=== PATIENT | male | born 1960 | race Caucasian/White ===

== ENCOUNTER 2017-01-12 12:11 | Emergency (ER) | payer BC ==
[2017-01-12 12:17] VITALS: TEMP 98.1; BMI 30.7
--- NOTE | 2017-01-12 12:44 | PDOC ---
History of Present Illness - General Chief Complaint: Injury Stated Complaint: FALL/ RT SIDE PAIN Time Seen by Provider: 01/12/17 12:26 History Source: Patient Exam Limitations: No Limitations - History of Present Illness Initial Comments: CHIEF COMPLAINT: 56 y/o afebrile female with PMH HTN, HLD, HISTORY OF PRESENT ILLNESS: Vital signs on arrival are within normal limits. REVIEW OF SYSTEMS: GENERAL/CONSTITUTIONAL: Subjective fever/chills. No weakness. No weight change. HEAD, EYES, EARS, NOSE AND THROAT: No change in vision. No ear pain or discharge. No sore throat. CARDIOVASCULAR: No chest pain or shortness of breath. RESPIRATORY: No cough, wheezing, or hemoptysis. GASTROINTESTINAL: See history of present illness. GENITOURINARY: No dysuria, frequency, or change in urination. MUSCULOSKELETAL: No joint or muscle swelling or pain. No neck or back pain. SKIN: No rash or easy bruising. NEUROLOGIC: No headache, vertigo, loss of consciousness, or loss of sensation. PHYSICAL EXAM: GENERAL: The patient is awake, alert, and fully oriented, in no acute distress. HEAD: Normal with no signs of trauma. ENT: Pupils equal, round and reactive to light, extraocular movements intact, sclera anicteric, conjunctiva clear. Neck supple. LUNGS: Clear to auscultation bilaterally. Normal excursion. No respiratory distress or use of accessory muscles. CV: RRR, S1/S2, no MRG. Cap refill < 2 sec. ABDOMEN: Soft, non-distended, non-tender even to deep palpation, no hepatomegaly or splenomegaly, no masses. EXTREMITIES: Normal range of motion, no edema. NEUROLOGICAL: Normal speech, normal gait. CN II-XII grossly intact. PSYCH: Normal mood, normal affect. SKIN: Warm, dry, normal turgor, no rashes or lesions noted. Past History - Past Medical History Allergies/Adverse Reactions: Allergies Allergy/AdvReac Type Severity Reaction Status Date / Time ciprofloxacin [From Cipro] Allergy Rash Verified 01/12/17 12:14 ciprofloxacin HCl Allergy Rash Verified 01/12/17 12:14 [From Cipro] codeine [Codeine] Allergy Rash Verified 01/12/17 12:14 Home Medications: Ambulatory Orders Metoprolol Tartrate [Lopressor -] 100 mg PO DAILY 08/05/12 Nifedipine ER [Procardia XL -] 90 mg PO DAILY 12/31/11 Naproxen [Naprosyn -] 500 mg PO BID PRN #14 tablet 10/16/14 Acetaminophen [Tylenol -] 1,000 mg PO Q6H PRN 11/03/14 Ranitidine HCl [Zantac] 150 mg PO PRN PRN 11/03/14 Tramadol HCl/Acetaminophen [Ultracet Tablet] 1 - 2 tab PO TID PRN #60 tablet 03/11 Aspirin [ASA -] 81 mg PO DAILY 12/09/15 Rosuvastatin Calcium [Crestor] 10 mg PO DAILY 12/09/15 Anemia: No GI Disorders: Yes (diverticiulitis) Disorders: Yes (KIDNEY STONES) HTN: Yes Hypercholesterolemia: Yes - Surgical History GI Surgery: No Orthopedic Surgery: Yes (ARTHROSCOPY RIGHT KNEE) - Immunization History Immunization Up to Date: Yes - Psycho/Social/Smoking Cessation Hx Anxiety: No Suicidal Ideation: No Smoking Status: No Smoking History: Never smoked Have you smoked in the past 12 months: No Number of Cigarettes Smoked Daily: 0 Hx Alcohol Use: No Drug/Substance Use Hx: No Substance Use Type: Alcohol *Physical Exam - Vital Signs Last Vital Signs Temp Pulse Resp BP Pulse Ox 98.1 F 60 18 127/90 99 01/12/17 12:14 01/12/17 12:14 01/12/17 12:14 01/12/17 12:14 01/12/17 12:14 Medical Decision Making - Medical Decision Making A/P:
[2017-01-12] MEDS ORDERED: ACETAMINOPHEN INJECTION 100 ML IVPB ONE (14:06)
[2017-01-12 14:08] LABS: BASOPHIL 0.8 % (0-2.0); EOSINOPHIL 1.4 % (0-4.5); MCH 29.6 pg (25.7-33.7); MCHC 33.4 g/dl (32.0-35.9); MEAN CELL VOLUME 88.5 fl (80-96); MEAN PLT VOLUME 8.6 fl (7.5-11.1); NEUTROPHILS 74.1 % (42.8-82.8); PLATELET COUNT 183 K/MM3 (134-434); RDW 12.9 % (11.9-15.9); WHITE BLOOD COUNT 11.1 K/mm3 (4.0-10.0)
[2017-01-12 14:27] VITALS: BP 124/83; PULSE 62
[2017-01-12 14:34] LABS: ALBUMIN 4.1 g/dl (3.4-5.0); ANION GAP 7 (8-16); CALCIUM 9.5 mg/dL (8.5-10.1); CO2 30 mmol/L (21-32); GLUCOSE,RANDOM 85 mg/dL (74-106)
[2017-01-12 14:37] LABS: ALK PHOS 85 U/L (45-117); CREATININE 0.8 mg/dL (0.7-1.3); SGPT/ALT 47 U/L (12-78); TOT PROT 8.1 g/dl (6.4-8.2)
[2017-01-12 14:39] LABS: SGOT/AST 36 U/L (15-37)
[2017-01-12 14:48] LABS: INR 1.1 (0.82-1.09); PROTHROMBIN TIME (PATIENT) 12.1 SEC (9.98-11.88)
--- NOTE | 2017-01-12 14:58 | PDOC ---
History of Present Illness - General Chief Complaint: Injury Stated Complaint: FALL/ RT SIDE PAIN Time Seen by Provider: 01/12/17 12:26 History Source: Patient Exam Limitations: No Limitations - History of Present Illness Initial Comments: 01/12/17 14:53 This is a 56yo man with PMH HTN who presents with LUQ and left flank pain s/p fall from a height of 6ft. He was standing on top of a ladder when he lost his balance and struck his left side on a picket fence. He reports pain to his LUQ, left flank and right popliteal fossa. He has ecchymoses to his left flank, right popliteal fossa and left upper quadrant. He denies chest pain, SOB, hematuria, dysuria, urinary frequency, nausea or vomiting. He denies striking his head or LOC. Occurred: reports: just prior to arrival Severity: reports: moderate Pain Location: reports: abdomen, chest Method of Injury: Yes: fall Modifying Factors: improves with: None Loss of Consciousness: no loss of consciousness Associated Symptoms (Fall): denies symptoms Past History - Travel Traveled outside of the country in the last 30 days: No Close contact w/someone who was outside of country & ill: No - Past Medical History Allergies/Adverse Reactions: Allergies Allergy/AdvReac Type Severity Reaction Status Date / Time ciprofloxacin [From Cipro] Allergy Rash Verified 01/12/17 12:14 ciprofloxacin HCl Allergy Rash Verified 01/12/17 12:14 [From Cipro] codeine [Codeine] Allergy Rash Verified 01/12/17 12:14 Home Medications: Ambulatory Orders Metoprolol Tartrate [Lopressor -] 100 mg PO DAILY 12/31/11 Nifedipine ER [Procardia XL -] 90 mg PO DAILY 12/31/11 Acetaminophen [Tylenol -] 1,000 mg PO Q6H PRN 11/03/14 Ranitidine HCl [Zantac] 150 mg PO PRN PRN 11/03/14 Aspirin [ASA -] 81 mg PO DAILY 12/09/15 Rosuvastatin Calcium [Crestor] 10 mg PO DAILY 12/09/15 Anemia: No GI Disorders: Yes (diverticiulitis) Disorders: Yes (KIDNEY STONES) HTN: Yes Hypercholesterolemia: Yes - Surgical History GI Surgery: No Orthopedic Surgery: Yes (ARTHROSCOPY RIGHT KNEE) - Immunization History Immunization Up to Date: Yes - Psycho/Social/Smoking Cessation Hx Anxiety: No Suicidal Ideation: No Smoking Status: No Smoking History: Never smoked Have you smoked in the past 12 months: No Number of Cigarettes Smoked Daily: 0 Hx Alcohol Use: No Drug/Substance Use Hx: No Substance Use Type: Alcohol Review of Systems - Review of Systems Able to Perform ROS?: Yes Is the patient limited Danish proficient: No Constitutional: No: Symptoms Reported HEENTM: No: Symptoms Reported Respiratory: No: Symptoms reported Cardiac (ROS): No: Symptoms Reported ABD/GI: Yes: See HPI : Yes: See HPI Musculoskeletal: Yes: See HPI Integumentary: Yes: See HPI Neurological: No: Symptoms reported *Physical Exam - Vital Signs Last Vital Signs Temp Pulse Resp BP Pulse Ox 98.1 F 62 20 124/83 100 01/12/17 12:14 01/12/17 14:26 01/12/17 14:26 01/12/17 14:26 01/12/17 14:26 ED Treatment Course - LABORATORY CBC & Chemistry Diagram: 01/12/17 13:50 01/12/17 13:50 - ADDITIONAL ORDERS Additional order review: Laboratory Results 01/12/17 13:50 Sodium 140 Potassium 3.6 Chloride 103 Carbon Dioxide 30 Anion Gap 7 L BUN 23 H Creatinine 0.8 Creat Clearance w eGFR > 60 Random Glucose 85 Calcium 9.5 Total Bilirubin 1.0 D AST 36 D ALT 47 D Alkaline Phosphatase 85 Total Protein 8.1 D Albumin 4.1 D 01/12/17 13:50 RBC 4.68 MCV 88.5 MCHC 33.4 RDW 12.9 MPV 8.6 Neutrophils % 74.1 Lymphocytes % 14.7 D Monocytes % 9.0 Eosinophils % 1.4 Basophils % 0.8 - RADIOLOGY Radiology Studies Ordered: Category Date Time Status ABDOMEN & PELVIS CT WITH CONTR [CT] Stat CT Scan 01/12/17 13:[address] WITH CONTRAST [CT] Stat CT Scan 01/12/17 13:57 Ordered Medical Decision Making - Medical Decision Making 01/12/17 14:58 A/P: This is a 56yo man with PMH HTN who presents with LUQ and left flank pain s/p fall from a height of 6ft. He was standing on top of a ladder when he lost his balance and struck his left side on a picket fence. He reports pain to his LUQ, left flank and right popliteal fossa. He has ecchymoses to his left flank, right popliteal fossa and left upper quadrant. He denies chest pain, SOB, hematuria, dysuria, urinary frequency, nausea or vomiting. He denies striking his head or LOC. DDx: splenic injury, RP bleed, soft tissue injury - CT of chest, abdomen, pelvis - CBC, CMP, Coags, T&S - IV Tylenol - Td 01/12/17 16:52 CT chest abd/pelvis without acute pathology. - Xray Right knee. - Toradol 30mg IVP 01/12/17 18:32 pt is ambulatory and feels better. Xrays (-) for acute pathology. I will discharge. I discussed the physical exam findings, ancillary test results and final diagnoses with the patient. I answered all of the patient's questions. The patient was satisfied with the care received and felt comfortable with the discharge plan and treatment plan. The patient will call his doctor within 96 hours to arrange follow-up and will return to the Emergency Department with any new, persistent or worsening symptoms. *DC/Admit/Observation/Transfer Diagnosis at time of Disposition: Contusion Qualifiers: Encounter type: initial encounter Contusion area: abdominal wall Qualified Code (s): S30.1XXA - Contusion of abdominal wall, initial encounter Right knee pain Qualifiers: Chronicity: acute Qualified Code(s): M25.561 - Pain in right knee - Discharge Dispostion Disposition: HOME Condition at time of disposition: Stable Admit: No - Referrals Referrals: Murray Tripathi [Primary Care Provider] - - Patient Instructions Printed Discharge Instructions: DI for Knee Pain, DI for Contusion Additional Instructions: Take ibuprofen as needed for pain as directed by welder tool and die's instructions. Call your doctor for follow up if symptoms have not improved in the next 4 days. You have a cyst in your kidney which should be evaluated to exclude cancer or any other conditions. Return to ER for worsening pain, inability to walk, blood in your urine or any other concerns.
[2017-01-12] MEDS ORDERED: KETOROLAC TROMETHAMINE 30 MG/1 ML VIAL IVPUSH ONE (16:49)
[2017-01-12] MEDS ORDERED: KETOROLAC TROMETHAMINE 30 MG/1 ML VIAL ONE (16:50)
[2017-01-12 17:01] LABS: URINE APPEARANCE CLEAR; URINE BILIRUBIN NEGATIVE (NEGATIVE); URINE BLOOD NEGATIVE (NEGATIVE); URINE COLOR LTYELLOW; URINE GLUCOSE (UA) NEGATIVE (NEGATIVE); URINE KETONE NEGATIVE (NEGATIVE); URINE LEUK ESTERASE NEGATIVE (NEGATIVE); URINE NITRITE NEGATIVE (NEGATIVE); URINE PROTEIN NEGATIVE (NEGATIVE); URINE UROBILINOGEN NEGATIVE mg/dL (0.2-1.0)
--- NOTE | 2017-01-12 19:36 | PDOC ---
*Physical Exam - Vital Signs Last Vital Signs Temp Pulse Resp BP Pulse Ox 98.1 F 62 20 124/83 100 01/12/17 12:14 01/12/17 14:26 01/12/17 14:26 01/12/17 14:26 01/12/17 14:26 ED Treatment Course - LABORATORY CBC & Chemistry Diagram: 01/12/17 13:50 01/12/17 13:50 - ADDITIONAL ORDERS Additional order review: Laboratory Results 01/12/17 01/12/17 01/12/17 16:45 13:50 13:50 INR 1.10 Sodium 140 Potassium 3.6 Chloride 103 Carbon Dioxide 30 Anion Gap 7 L BUN 23 H Creatinine 0.8 Creat Clearance w eGFR > 60 Random Glucose 85 Calcium 9.5 Total Bilirubin 1.0 D AST 36 D ALT 47 D Alkaline Phosphatase 85 Total Protein 8.1 D Albumin 4.1 D Urine Color Ltyellow Urine Appearance Clear Urine pH 6.0 Urine Protein Negative Urine Glucose (UA) Negative Urine Ketones Negative Urine Blood Negative Urine Nitrite Negative Urine Bilirubin Negative Urine Urobilinogen Negative Ur Leukocyte Esterase Negative 01/12/17 13:50 RBC 4.68 MCV 88.5 MCHC 33.4 RDW 12.9 MPV 8.6 Neutrophils % 74.1 Lymphocytes % 14.7 D Monocytes % 9.0 Eosinophils % 1.4 Basophils % 0.8 - Medications Given in the ED: ED Medications Discontinued Medications Generic Name Dose Route Start Last Admin Trade Name Freq PRN Reason Stop Dose Admin Ketorolac Tromethamine 30 mg 01/12/17 16:49 01/12/17 16:55 Toradol Injection - IVPUSH 01/12/17 16:50 30 mg ONCE ONE Administration Medical Decision Making - Medical Decision Making 01/12/17 16:33 I agree with CATRACHO Feliz's history, assessment, and plan. In summary, 56yo man with hx HTN who presents with LUQ and left flank pain after a fall from a height of 6ft on a ladder. No head strike. Exam with ecchymoses to his left flank, right popliteal fossa and left upper quadrant. CT chest abdomen and pelvis with IV contrast for trauma protocol is negative for acute pathology. FAST exam was negative. Pt feels better and is ambulating in the ED with no complaints, AOx3, will be DC home *DC/Admit/Observation/Transfer Diagnosis at time of Disposition: Contusion Qualifiers: Encounter type: initial encounter Contusion area: abdominal wall Qualified Code (s): S30.1XXA - Contusion of abdominal wall, initial encounter Right knee pain Qualifiers: Chronicity: acute Qualified Code(s): M25.561 - Pain in right knee - Referrals Referrals: Murray Tripathi [Primary Care Provider] - - Patient Instructions Printed Discharge Instructions: DI for Contusion, DI for Knee Pain Additional Instructions: Take ibuprofen as needed for pain as directed by digital advertising specialist's instructions. Call your doctor for follow up if symptoms have not improved in the next 4 days. You have a cyst in your kidney which should be evaluated to exclude cancer or any other conditions. Return to ER for worsening pain, inability to walk, blood in your urine or any other concerns. Print Language: VIETNAMESE - Post Discharge Activity
--- NOTE | 2017-01-13 18:41 | EKG ---
Test Reason : Blood Pressure : / mmHG Vent. Rate : 056 BPM Atrial Rate : 056 BPM P-R Int : 190 ms QRS Dur : 130 ms QT Int : 468 ms P-R-T Axes : 040 007 019 degrees QTc Int : 451 ms SINUS BRADYCARDIA RIGHT BUNDLE BRANCH BLOCK ABNORMAL ECG WHEN COMPARED WITH ECG OF 31-DEC-2011 17:49, RIGHT BUNDLE BRANCH BLOCK IS NOW PRESENT Confirmed by KATIE TIWARI MD ([id number]) on 01/13/2017 6:40:44 PM Referred By: Confirmed By:KATIE TIWARI MD
== END 2017-01-12 18:47 | disposition home or self-care (01) ==
LOC: JER 12:11 → JERFT 12:11 → JER 18:47
PROC: 3E0333Z Introduction of Anti-inflammatory into Peripheral Vein, Percutaneous Approach (ICD-10-PCS; principal; 2017-01-12)
DX: S30.1XXA Contusion of abdominal wall, initial encounter (principal); M25.561 Pain in right knee; W11.XXXA Fall on and from ladder, initial encounter; Y93.9 Activity, unspecified; Y92.9 Unspecified place or not applicable; I10 Essential (primary) hypertension; Z88.1 Allergy status to other antibiotic agents; Z88.6 Allergy status to analgesic agent; Z79.82 Long term (current) use of aspirin; N28.1 Cyst of kidney, acquired
CPT/HCPCS: 36415; 71260-TC; 73560-TC-RT; 74177-TC; 80053; 81003; 85025; 85610; 93005; 93010; 99283-25

== ENCOUNTER 2018-11-13 06:05 | Day surgery (SDC) | payer BC ==
[2018-11-12 11:42] VITALS: BMI 29.2
[2018-11-13] MEDS ORDERED: MIDAZOLAM HCL 2 MG/2 ML SINGLE DOSE VIAL ONE (07:21)
[2018-11-13] MEDS ORDERED: PROPOFOL 20 ML ONE ×2 (07:22→08:16)
[2018-11-13] MEDS ORDERED: LIDOCAINE HCL/PF 2% SDV 5ML VIAL ONE (07:23)
[2018-11-13] MEDS ORDERED: SUCCINYLCHOLINE CHLORIDE 200 MG/10 ML SYRINGE ONE (07:23)
[2018-11-13] MEDS ORDERED: KETOROLAC TROMETHAMINE 30 MG/1 ML VIAL ONE (07:24)
[2018-11-13] MEDS ORDERED: DEXAMETHASONE SOD PHOSPHATE 4 MG/1 ML VIAL ONE (07:24)
[2018-11-13] MEDS ORDERED: BUPIVACAINE HCL/PF 0.5% (5MG/ML) 10 ML VIAL ONE (07:39)
[2018-11-13] MEDS ORDERED: oxyCODONE HCL 5 MG TABLET PO PRN ×2 (07:55)
[2018-11-13] MEDS ORDERED: ONDANSETRON 4 MG/2 ML VIAL IVPUSH PRN (07:55)
[2018-11-13] MEDS ORDERED: LACTATED RINGERS SOLUTION 1,000 ML IV SCH (08:00)
--- NOTE | 2018-11-13 08:16 | HP ---
Satellite [facility] - Chief Complaint Chief Complaint: right knee pain History of Present Illness: right knee pain History Source: Patient Limitations to Obtaining History: No Limitations - Past Medical History Allergies/Adverse Reactions: Allergies Allergy/AdvReac Type Severity Reaction Status Date / Time ciprofloxacin [From Cipro] Allergy Rash Verified 01/12/17 12:14 ciprofloxacin HCl Allergy Rash Verified 01/12/17 12:14 [From Cipro] codeine [Codeine] Allergy Rash Verified 01/12/17 12:14 - Current Medications Current Medications: Home Medications Medication Instructions Recorded Metoprolol Tartrate [Lopressor -] 100 mg PO DAILY 12/31/11 Nifedipine ER [Procardia XL -] 90 mg PO DAILY 12/31/11 Acetaminophen [Tylenol -] 1,000 mg PO Q6H PRN 11/03/14 Ranitidine HCl [Zantac] 150 mg PO PRN PRN 11/03/14 Aspirin [ASA -] 81 mg PO DAILY 12/09/15 Rosuvastatin Calcium [Crestor] 10 mg PO DAILY 12/09/15 Hydrochlorothiazide 25 mg PO DAILY 11/12/18 Satellite Physical Exam - Physical Examination Vital Signs: Vital Signs Period Temp Pulse Resp BP Sys/Lange Pulse Ox Last 24 Hr 97.7 F-97.7 F 61-61 20-20 115-115/78-78 97 General Appearance: Well Nourished ENT: Clear Lung: Clear to auscultation Heart: Regular rate & rhythm Breasts: Soft Abdomen: Soft Extremities: No edema Satellite Impression/Plan - Impression/Plan Impression: right knee pain, medial meniscus tear, OA Operative Procedure: right knee arthroscopy Date to be Performed: 11/13/18
[2018-11-13] MEDS ORDERED: ceFAZolin SODIUM 1 GM VIAL IVPB ONE (08:18)
[2018-11-13] MEDS ORDERED: BUPIVACAINE HCL/PF (5 MG/ML) 30 ML VIAL IJ ONE (08:45)
--- NOTE | 2018-11-13 08:57 | OP ---
Operative Note - Note: Operative Date: 11/13/18 Pre-Operative Diagnosis: right knee pain, MM tear, OA Operation: right knee arthroscopy, partial medial meniscectomy, debridement chondroplasty Post-Operative Diagnosis: Same as Pre-op Surgeon: Devin Barrios Anesthesiologist/LIVESTOCK LABORER: Willam Acharya Anesthesia: General, Local Specimens Removed: shavings Estimated Blood Loss (mls): 0 Drains, Volume Out (mls): 0 Blood Volume Replaced (mls): 0 Fluid Volume Replaced (mls): 500 Operative Report Dictated: Yes
[2018-11-13 10:45] VITALS: TEMP 97.4
[2018-11-13 11:57] VITALS: BP 112/80; PULSE 70
--- NOTE | 2018-11-13 12:23 | OP ---
DATE OF OPERATION: 11/13/2018 PREOPERATIVE DIAGNOSES: Right knee pain, medial meniscus tear and osteoarthritis. POSTOPERATIVE DIAGNOSES: Right knee pain, medial meniscus tear and osteoarthritis. PROCEDURE: Right knee arthroscopy, partial medial meniscectomy and debridement chondroplasty. SURGEON: Devin So MD GIS ADMINISTRATOR: None. ANESTHESIOLOGIST: ANESTHESIA: LMA anesthesia with local injection, 20 mL, 0.5% Marcaine. DRAINS: None. COMPLICATIONS: None. SPECIMEN: Arthroscopic shavings. BLOOD LOSS: None. BLOOD GIVEN: None. FLUID REPLACEMENT: 500 mL. This patient is a 58-year-old male with a preoperative diagnosis of right knee pain, a medial meniscus tear and osteoarthritis. After understanding the potential risks, complications, alternatives, benefits of surgery versus nonsurgical treatment the patient elected to undergo this procedure. The patient was brought to the operating room. Peripheral IV placed and IV sedation given. IV Ancef 2 g were given. LMA anesthesia was induced. He was placed into the supine position with ample padding around the right thigh including a Styrofoam ring. The right lower extremity was prepped and draped in sterile fashion, elevated, exsanguinated with an Esmarch bandage. Tourniquet inflated to 270 mmHg. A superomedial outflow portal was established. A lateral portal was then established and the arthroscope was introduced into the joint using a spinal needle. Under direct visualization a medial portal was established and a diagnostic arthroscopy was performed. Patient was seen to have a complex tear of the posterior aspect of the body and the posterior horn of the medial meniscus. There was a large radial component going all the way to the circumferential capsular fibers. Using a combination of the right basket forceps and the curved shaver a partial medial meniscectomy was performed. Photographs were taken before, during and after. Once this was done the medial meniscus was probed and what was left was quite stable. The tear did, however, extend all the way to the capsule and therefore eliminated the hoop fibers. At the end approximately 60% of the posterior horn was still left, the entire anterior horn and 1/2 of the body of the medial meniscus. There was some osteoarthritis including 1 area of grade 4 osteoarthritis on the medial femoral condyle and grade 3 changes on the medial tibial plateau in the area of the meniscus tear. This was gently debrided. The intercondylar notch looked good. The ACL had the appropriate tension. The lateral compartment looked good. There was no osteoarthritis and the lateral meniscus looked good. The patellofemoral joint had some significant osteoarthritis including grade 2/grade 3 changes on the undersurface of the patella and grade 2 changes with large areas of unstable flaps on the femoral trochlea. This was debrided. After the debridement chondroplasty in the patellofemoral joint the area was copiously irrigated and washed out and no other abnormalities were identified. The arthroscope was removed. All excess saline was removed. The arthroscopy portals were closed with 3-0 nylon sutures. Marcaine 0.5%, 20 mL, was introduced into the joint. The area was then washed and dried, covered with Xeroform gauze, 4 x 4 gauze, Webril and a 6-inch Zeke bandage. The tourniquet was taken down after a total tourniquet time of 20 minutes. There were no complications during the case. The patient tolerated the procedure quite well and was brought to the ambulatory recovery room in stable condition. DEVIN SO M.D. [id number]
--- NOTE | 2018-11-15 16:52 | PATH ---
Surgical Pathology Report Patient Name: RAUL FAYE [facility]. Rec. #: [id number] /Age/Gender: 1960 (Age: 58) / M Account: [id number] Location: [facility] SURGICAL Taken: 11/13/2018 Received: 11/13/2018 Reported: 11/15/2018 Physicians: Devin Barrios M.D. Specimen(s) Received RIGHT KNEE SHAVINGS Clinical History Right knee tear Final Diagnosis KNEE SHAVINGS, RIGHT, ARTHROSCOPY, PARTIAL MEDIAL MENISCECTOMY, DEBRIDEMENT CHONDROPLASTY: FRAGMENTS OF CARTILAGE, BONE, DENSE FIBROCONNECTIVE TISSUE, ADIPOSE TISSUE, AND SYNOVIUM. Electronically Signed Chiqui Stack M.D. Gross Description Received in formalin, labeled "right knee shavings," is a 4.0 x 4.0 x 0.6 cm. aggregate of mora-yellow soft tissue fragments. A home furnishings sales representative portion is submitted in one cassette. /11/14/2018 [facility]11/14/2018
== END 2018-11-13 11:57 | disposition home or self-care (01) ==
LOC: JASU-SURG 06:05
PROVIDERS: ATTEND Orthopaedic Surgery
PROC: 0SBC4ZZ Excision of Right Knee Joint, Percutaneous Endoscopic Approach (ICD-10-PCS; principal; 2018-11-13 08:00)
DX: S83.241A Other tear of medial meniscus, current injury, right knee, initial encounter (principal); X58.XXXA Exposure to other specified factors, initial encounter; Y93.9 Activity, unspecified; Y92.9 Unspecified place or not applicable; Y99.9 Unspecified external cause status; M17.11 Unilateral primary osteoarthritis, right knee
CPT/HCPCS: 88304-TC; 94760; 97116-GP

== ENCOUNTER 2020-06-18 15:29 | Emergency (ER) | payer BC ==
[2020-06-18 15:48] VITALS: BMI 28.4
[2020-06-18 18:13] LABS: BASO % 0.7 % (0-2.0); EOS % 1.4 % (0-4.5); HEMATOCRIT 38.4 % (35.4-49); HEMOGLOBIN 12.9 GM/dL (11.7-16.9); LYMPH % 14.3 % (8-40); MCH 29.6 pg (25.7-33.7); MCHC 33.6 g/dl (32.0-35.9); MEAN CELL VOLUME 88.1 fl (80-96); MEAN PLT VOLUME 8.3 fl (7.5-11.1); MONO % 7.7 % (3.8-10.2); NEUT % 75.9 % (42.8-82.8); PLATELET COUNT 270 K/MM3 (134-434); RBC 4.36 M/mm3 (4.00-5.60); RDW 12.8 % (11.9-15.9); WHITE BLOOD COUNT 8.9 K/mm3 (4.0-10.0)
[2020-06-18 18:22] LABS: INR 1.14 (0.83-1.09)
[2020-06-18 18:25] LABS: ACTIVATED PTT 35.5 SECONDS (25.2-36.5)
[2020-06-18 18:36] LABS: URINE APPEARANCE CLEAR; URINE BILIRUBIN NEGATIVE (NEGATIVE); URINE COLOR YELLOW; URINE GLUCOSE (UA) NEGATIVE (NEGATIVE); URINE KETONE TRACE (NEGATIVE); URINE LEUK ESTERASE NEGATIVE (NEGATIVE); URINE NITRITE NEGATIVE (NEGATIVE); URINE PROTEIN TRACE (NEGATIVE); URINE UROBILINOGEN 0.2 mg/dL (0.2-1.0)
[2020-06-18 18:39] LABS: CHLORIDE 105 mmol/L (98-107); POTASSIUM 3.7 mmol/L (3.5-5.1); SODIUM 139 mmol/L (136-145)
[2020-06-18 18:43] LABS: CALCIUM 9.8 mg/dL (8.5-10.1)
[2020-06-18 18:44] LABS: ALBUMIN 3.8 g/dl (3.4-5.0); ANION GAP 5 MMOL/L (8-16); BLOOD UREA NITROGEN 31.1 mg/dL (7-18); CO2 29 mmol/L (21-32); GLUCOSE,RANDOM 96 mg/dL (74-106)
[2020-06-18 18:47] LABS: CREATININE 1.2 mg/dL (0.55-1.3); SGOT/AST 13 U/L (15-37); SGPT/ALT 23 U/L (13-61)
[2020-06-18 18:48] LABS: BILIRUBIN,TOTAL 0.5 mg/dL (0.2-1)
[2020-06-18 18:50] LABS: ALK PHOS 97 U/L (45-117)
[2020-06-18 21:40] VITALS: BP 112/76; PULSE 82; TEMP 98.6
== END 2020-06-18 21:40 | disposition home or self-care (01) ==
LOC: JER 15:29
DX: R55 Syncope and collapse (principal); R79.89 Other specified abnormal findings of blood chemistry; R39.11 Hesitancy of micturition
CPT/HCPCS: 36415; 71046-TC-FY; 71275-TC; 80053; 81003; 82550; 84484; 85025; 85379; 85610; 85730; 93005; 93010; 99285-25; Q9967

== ENCOUNTER 2022-06-29 04:19 | Day surgery (SDC) | payer BC ==
[2022-06-27 16:19] VITALS: BMI 31.4
[2022-06-29] MEDS ORDERED: ACETAMINOPHEN INJECTION 100 ML IVPB ONE (14:20)
[2022-06-29] MEDS ORDERED: LIDOCAINE HCL 2% JELLY 10 ML CARTRIDGE TP ONE (14:40)
[2022-06-29] MEDS ORDERED: ACETAMINOPHEN 1000 MG/100 ML BAG IVPB ONE (14:40)
[2022-06-29] MEDS ORDERED: LIDOCAINE HCL 2% JELLY 10 ML CARTRIDGE ONE (15:01)
[2022-06-29 15:12] VITALS: TEMP 98
[2022-06-29 16:32] VITALS: BP 127/94; PULSE 73; RESP 17
== END 2022-06-29 04:30 | disposition home or self-care (01) ==
LOC: JASU-ENDO 04:19
PROVIDERS: ATTEND Internal Medicine Gastroenterology
PROC: 06LY7CC Occlusion of Hemorrhoidal Plexus with Extraluminal Device, Via Natural or Artificial Opening (ICD-10-PCS; 2022-06-29)
PROC: 0DBK8ZX Excision of Ascending Colon, Via Natural or Artificial Opening Endoscopic, Diagnostic (ICD-10-PCS; principal; 2022-06-29 12:30)
DX: Z12.11 Encounter for screening for malignant neoplasm of colon (principal); D12.2 Benign neoplasm of ascending colon; D12.4 Benign neoplasm of descending colon; K57.30 Diverticulosis of large intestine without perforation or abscess without bleeding; K64.9 Unspecified hemorrhoids; K62.5 Hemorrhage of anus and rectum
CPT/HCPCS: 88305-TC